=== PATIENT | female | born 1990 | race Caucasian/White ===

== ENCOUNTER → 2020-03-08 16:18 | Outpatient (BNVA) | payer OTHER, SELFPAY | PROVIDERS: Family Provider Family Medicine; PCP Family Medicine; Referring Provider Nurse Practitioner Family; Visit Provider Podiatrist Foot & Ankle Surgery | DX: L98.9 Disorder of the skin and subcutaneous tissue, unspecified (principal); M77.32 Calcaneal spur, left foot; M79.89 Other specified soft tissue disorders | CPT/HCPCS: 73630 ==

== ENCOUNTER → 2020-08-16 13:36 | Outpatient (BNVA) | payer OTHER, SELFPAY | PROVIDERS: Family Provider Family Medicine; PCP Family Medicine; Visit Provider Obstetrics & Gynecology | DX: Z32.01 Encounter for pregnancy test, result positive (principal) | CPT/HCPCS: 81025 ==

== ENCOUNTER → 2020-10-05 10:55 | Outpatient (BNVA) | payer OTHER, SELFPAY | PROVIDERS: Family Provider Family Medicine; PCP Family Medicine; Visit Provider Obstetrics & Gynecology | DX: Z34.81 Encounter for supervision of other normal pregnancy, first trimester (principal) | CPT/HCPCS: 80307; 84315; 85027; 86592; 86762; 86803; 86850; 86900; 87086; 87340; 87806 ==

== ENCOUNTER → 2020-10-26 15:03 | Outpatient (BNVA) | payer OTHER, SELFPAY | PROVIDERS: Family Provider Family Medicine; PCP Family Medicine; Visit Provider Obstetrics & Gynecology | DX: Z34.80 Encounter for supervision of other normal pregnancy, unspecified trimester | CPT/HCPCS: 84315; 87491; 87591 ==

== ENCOUNTER → 2020-11-16 11:20 | Outpatient (BNVA) | payer OTHER, SELFPAY | PROVIDERS: Family Provider Family Medicine; PCP Family Medicine; Visit Provider Nurse Practitioner Women's Health | DX: Z20.828 Contact with and (suspected) exposure to other viral communicable diseases (principal); Z34.90 Encounter for supervision of normal pregnancy, unspecified, unspecified trimester | CPT/HCPCS: 84315; 87635 ==

== ENCOUNTER → 2021-02-07 13:05 | Outpatient (BNVA) | payer OTHER, SELFPAY | PROVIDERS: Family Provider Family Medicine; PCP Family Medicine; Visit Provider Obstetrics & Gynecology | DX: O36.60X0 Maternal care for excessive fetal growth, unspecified trimester, not applicable or unspecified (principal) | CPT/HCPCS: 82950; 84315; 85025 ==

== ENCOUNTER → 2021-04-05 07:59 | Outpatient (BNVA) | payer OTHER, SELFPAY | PROVIDERS: Family Provider Family Medicine; PCP Family Medicine; Visit Provider Obstetrics & Gynecology | DX: O36.63X0 Maternal care for excessive fetal growth, third trimester, not applicable or unspecified (principal) | CPT/HCPCS: 84315; 87081 ==

== ENCOUNTER → 2021-04-26 07:54 | Outpatient (BNVA) | payer OTHER, SELFPAY | PROVIDERS: Family Provider Family Medicine; PCP Family Medicine; Visit Provider Obstetrics & Gynecology | DX: O36.63X0 Maternal care for excessive fetal growth, third trimester, not applicable or unspecified (principal); Z3A.00 Weeks of gestation of pregnancy not specified | CPT/HCPCS: 84315; 87635 ==

== ENCOUNTER 2021-04-29 06:43 | Inpatient (IN) | payer OTHER, SELFPAY ==
[2021-04-29] VITALS (50 sets, daily range): BP systolic 100–147; BP diastolic 50–85; PULSE 61–99; RESP 17; TEMP 36.6–37.4; O2SAT 98–100; BMI 32.0
[2021-04-29] MEDS: lactated ringers 1,000 ML 999 ML IV ×2 (07:09→09:30)
[2021-04-29 07:26] LABS: Basophils % 0.3 %; Eosinophils % 0.4 %; Hematocrit 37.6 % (37.0-47.0); Hemoglobin 12.6 g/dL (11.5-15.3); Lymphocytes # 1.4 10^3/uL (0.8-4.8); Lymphocytes % 12.7 %; Mean Corpuscular HGB Conc 33.5 g/dL (30.0-36.0); Mean Corpuscular Hemoglobin 31.1 pg (28.0-34.0); Mean Corpuscular Volume 92.8 fL (81-99); Mean Platelet Volume 12.2 fL (7.4-10.4); Monocytes # 0.5 10^3/uL (0.2-0.9); Monocytes % 4.8 %; Neutrophils # 8.87 10^3/uL (1.8-7.7); Neutrophils % 81.3 %; Nucleated Red Blood Cells % 0 %; Platelet Count 150 10^3/cmm (130-400); Red Blood Count 4.05 10^6/uL (4.1-5.3); Red Cell Distribution Width 13.2 % (12.1-15.1); White Blood Count 10.9 10^3/uL (4.0-10.0)
--- NOTE | 2021-04-29 07:45 | ANES.PREANE2 ---
Pre-Anesthetic Assessment Pre-Anesthetic Assessment: Height/Weight: Height 1.57 m Weight 79.379 kg Pulse Resp BP Pulse Ox 82 17 113/63 100 04/29/21 08:14 04/29/21 07:01 04/29/21 08:14 04/29/21 08:10 Preop Diagnosis: IUP Proposed Procedure: labor epidural Was Beta Sylvia taken within 24 hours: N/A Was Clonidine taken within 24 hours: N/A Social: Social History: No alcohol and No tobacco Exam: Pre-Anes Outpt Exam: alert, oriented x 3, clear to auscultation bilaterally and regular rate & rhythm Airway: Submandibular: WNL Cervical ROM: WNL MP: 1 History/ROS: No significant history except as noted Pulmonary: Pulmonary: None reported CV/HEM: CV/HEM: None reported : : None reported Hepatic: Hepatic: None reported GI: GI: None reported Metabolic: Metabolic: None reported Musc/skel: Musc/skel: None reported Neuropsych: Neuropsych: None reported Anesthetic Plan: ASA status: 1 Anesthesia: Anesthesia Evaluation Risk of > 500 ml blood loss (7ml/kg in children): No Meds/Allergies Current Medications: Current Medications Generic Name Dose Route Start Last Admin Trade Name Freq PRN Reason Stop Dose Admin Ropivacaine 200 mg in 100 mls @ 13 mls/hr 04/29/21 07:00 04/29/21 08:07 Naropin Premix EPIDURAL 13 mls/hr .Q7H42M PRN Administration ANESTHESIA Lactated Ringer's 1,000 mls @ 999 m ls/hr 04/29/21 07:00 04/29/21 08:10 Lactated Ringers IV Infused .Q1H1M PRN Infusion See label comment s Dextrose/Lactated Ringer's 1,000 mls @ 125 m ls/hr 04/29/21 07:00 04/29/21 08:10 Dextrose 5%-Lact ated Ringers IV 125 mls/hr .Q8H PRN Administration LABOR PAIN PFSH Anesthesia PFSH: Medical History No pertinent past medical history Denies diabetes, asthma, hypertension, seizures, DVT/PE,herpes --denies partner with herpes PCP: None. Uses [facility] Surgical History History of surgery on left wrist Benign cyst removal as a child S/P wisdom tooth extraction Family History Mother Heart disease Bladder cancer Hypertension Thyroid condition Grandmother Heart disease maternal Breast cancer paternal, age at diagnosis unknown Thyroid condition Maternal Denies family history of Colon cancer Ovarian cancer Diabetes Uterine cancer Stroke Female Reproductive History: : 2 Data Anesthesia CBC & Chem 7: 04/29/21 07:00 Other Labs: Laboratory Results - last 48 hr 04/29/21 07:00 WBC 10.9 H RBC 4.05 L Hgb 12.6 Hct 37.6 MCV 92.8 MCH 31.1 MCHC 33.5 RDW 13.2 Plt Count 150 MPV 12.2 H Neut % (Auto) 81.3 Lymph % (Auto) 12.7 Colbert % (Auto) 4.8 Eos % (Auto) 0.4 Baso % (Auto) 0.3 Neut # (Auto) 8.87 H Lymph # (Auto) 1.4 Colbert # (Auto) 0.5 Eos # (Auto) 0.0 Baso # (Auto) 0.0 Nucleated RBC % (auto) 0 Nucleated RBCs # 0.0 Cardiac Studies: No Data to Display
[2021-04-29] MEDS: dextrose 5%-lactated ringers 1,000 ML 125 ML IV (08:10)
--- NOTE | 2021-04-29 08:20 | ANES.PROC ---
Anesthesia Procedures Procedure/Date: 04/29/21 Epidural: Time Out Performed: Yes Consents Signed: Procedure Consent Consent: requested by attending/covering physician Lumbar Level: L3-L4 Epidural position: sitting Epidural procedure: sterile prep of area, 1% lidocaine to numb the area, negative for paresthesia passed, neg for paresthesia, test dose given, 1.5% xylocaine 1:200k epi, placed PCEA, no systemic response, sterile dressing applied, L.U.D. no apparent complications and 0.2% Ropiavacaine @ mls/hr (13)
[2021-04-29] MEDS: lidocaine 2% INJ 20 mL INJECTION (10:57)
[2021-04-29] MEDS: oxytocin 30 UNIT/500 ML BAG 600 UNIT IV (11:08)
--- NOTE | 2021-04-29 11:41 | P.PCNOB_ITS ---
Delivery Note: Date of delivery: April 29, 2021 - PRE-DELIVERY DIAGNOSIS: 31-year-old 2 para 1-0-0-1 at 39 weeks and 5 days gestation GBS negative Macrosomia Covid negative POST-DELIVERY DIAGNOSIS: Vaginal delivery on 04/29/2021 PROCEDURE: Vaginal delivery on 04/29/2021 ANESTHESIA: Epidural anesthesia with 2% lidocaine for local anesthesia DELIVERING PHYSICIAN: Emmy Wasserman FACOG PRE-DELIVERY COURSE: Ms. Nunn is a 31-year-old 2 para 1-0-0-1 at 39 weeks and 5 days who presented to labor and delivery at 6:30 AM for her scheduled induction. She had however started colleen at 2 AM and reported that since 5 AM her contractions have been consistent and painful and she has been breathing through them. Upon examination she was noted to be 5 cm 90% and -1 station with a bulging bag with a category 1 tracing except for early decelerations and contractions every 2 to 3 minutes. She was in active labor and was admitted to labor and delivery. Epidural was placed shortly afterwards. At 9 AM she was 7 cm 90% and -2 station and was comfortable with her epidural. Artificial rupture of membranes was performed at 9:06 AM with clear fluid and she made rapid cervical change after this and was fully dilated at 10:25 AM and +1 station. During this time she required position changes and oxygen for occasional late decelerations which resolved with these interventions. After she was fully dilated given that she had occasional late decelerations decision was made to start pushing and she was pushing effectively. DELIVERY NOTE: She was set up in lithotomy position and was pushing effectively. She was noted to be +3 station and continued pushing well. Right mediolateral episiotomy was cut after infiltrating the area with 2% lidocaine. The head delivered in OK position, no nuchal cord present. The shoulders and rest of the body followed with her next push. The baby's mouth and nose were suctioned and the baby was placed on the mother's belly. Once cord pulsations stopped the cord was clamped and cut. The placenta delivered spontaneously intact with membranes and was discarded. The fundus was noted to be firm and well contracted. The vagina and cervix were inspected and no cervical or sulcal lacerations were noted. The perineum was intact except for second-degree right mediolateral episiotomy. Baby boy born at 11 AM on 04/29/2021 with 8/9, weighing 8 pounds 6 ounces, 3785 g, 21 inches long. Placenta was delivered spontaneously intact with membranes at 11:06 AM. Cotyledons were intact , centrally inserted umbilical cord with 3 vessels noted. Estimated blood loss 300 mL. Complications-none, both baby and mother were left to recover in a stable condition. This documentation was created by [employer] chemical engineering technician software (known for inherent chemical engineering technician error). Every effort was made to assure accuracy of chemical engineering technician. Any obvious errors or omissions should be clarified with the author of the document. Coding Level of Care Code Acute Academic Computing Director for Chg Fwd History History History 2 Term 2 Miscarriages/Ectopic 0 0 Living Children 2 Other History: VAVD X 1 X 1 1--> 05/02/2017, male,(Zachariah) , 7 lbs 3 ozs, 39 wks, epidural, vacuum- assisted vaginal delivery for nonreassuring heart tracing and failure to descend, delivered by Dr Giraldo, at [facility], [place], [place]. Delivery was complicated by hemmorhage. 2---> 04/29/2021, male(), 8 pounds 6 ounces, 3785 g, 39 weeks and 5 days, active labor, epidural, vaginal delivery over a right mediol[place] [facility] [place]
[2021-04-29] MEDS: ibuprofen 800 mg tablet PO ×2 (15:19→20:59)
[2021-04-29] MEDS: lanolin oint 7 gm 1 APPLIC TOPICAL (15:19)
[2021-04-29] MEDS: benzocaine-menthol 78 gm Canister 1 SPRAY TOPICAL (15:19)
[2021-04-29] MEDS: docusate sodium 100 mg Capsule PO (17:57)
[2021-04-29 23:43] LABS: Hematocrit 29.3 % (37.0-47.0); Hemoglobin 9.8 g/dL (11.5-15.3); Mean Corpuscular HGB Conc 33.4 g/dL (30.0-36.0); Mean Corpuscular Hemoglobin 31.4 pg (28.0-34.0); Mean Corpuscular Volume 93.9 fL (81-99); Mean Platelet Volume 12.6 fL (7.4-10.4); Platelet Count 134 10^3/cmm (130-400); Red Blood Count 3.12 10^6/uL (4.1-5.3); Red Cell Distribution Width 13.6 % (12.1-15.1); White Blood Count 12.4 10^3/uL (4.0-10.0)
[2021-04-30] VITALS (8 sets, daily range): BP systolic 107–114; BP diastolic 57–72; PULSE 63–94; RESP 16–18; TEMP 36.3–36.9; O2SAT 99
[2021-04-30] MEDS: docusate sodium 100 mg Capsule PO (08:04)
[2021-04-30] MEDS: ibuprofen 800 mg tablet PO ×2 (08:04→17:28)
--- NOTE | 2021-04-30 15:26 | PM.OBGYDC ---
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 Nunn is a 31-year-old 2 para 1-0-0-1 at 39 weeks and 5 days who presented to labor and delivery at 6:30 AM for her scheduled induction. She had however started colleen at 2 AM and reported that since 5 AM her contractions have been consistent and painful and she has been breathing through them. Upon examination she was noted to be 5 cm 90% and -1 station with a bulging bag with a category 1 tracing except for early decelerations and contractions every 2 to 3 minutes. She was in active labor and was admitted to labor and delivery. Epidural was placed shortly afterwards. At 9 AM she was 7 cm 90% and -2 station and was comfortable with her epidural. Artificial rupture of membranes was performed at 9:06 AM with clear fluid and she made rapid cervical change after this and was fully dilated at 10:25 AM and +1 station. During this time she required position changes and oxygen for occasional late decelerations which resolved with these interventions. After she was fully dilated given that she had occasional late decelerations decision was made to start pushing and she was pushing effectively. DELIVERY NOTE: She was set up in lithotomy position and was pushing effectively. She was noted to be +3 station and continued pushing well. Right mediolateral episiotomy was cut after infiltrating the area with 2% lidocaine. The head delivered in OK position, no nuchal cord present. The shoulders and rest of the body followed with her next push. The baby's mouth and nose were suctioned and the baby was placed on the mother's belly. Once cord pulsations stopped the cord was clamped and cut. The placenta delivered spontaneously intact with membranes and was discarded. The fundus was noted to be firm and well contracted. The vagina and cervix were inspected and no cervical or sulcal lacerations were noted. The perineum was intact except for second-degree right mediolateral episiotomy. Baby boyEnrique born at 11 AM on 04/29/2021 with 8/9, weighing 8 pounds 6 ounces, 3785 g, 21 inches long. Placenta was delivered spontaneously intact with membranes at 11:06 AM. Cotyledons were intact , centrally inserted umbilical cord with 3 vessels noted. Estimated blood loss 300 mL. Complications-none, both baby and mother were left to recover in a stable condition. HOSPITAL COURSE: She underwent an uncomplicated vaginal delivery on 04/29/2021. She did well on day 0 and was ambulating well, tolerating regular diet, voiding freely, passing flatus. She was breast-feeding without difficulty and bonding well with her son. Circumcision was performed on day of life 1 per her request without any difficulty. Pain was well-controlled with by mouth pain medication. She denied nausea, vomiting, fever, chills, shortness of breath, leg pain. She had moderate vaginal bleeding. On day # 1 she continued to do well with stable vital signs and stable hemoglobin at 9.8. She was discharged home on day 1 in a stable condition, as she desired early discharge. Warning signs for endometritis, mastitis, DVT/PE were reviewed with her. Post delivery activity restrictions were also reviewed with her at all her questions were answered to her satisfaction. Plans on using control pills for contraception EXAM AT DISCHARGE: Gen.: No acute distress Heart: S1-S2 heard, regular rate and rhythm Lungs: Clear to auscultation bilaterally Abdomen: Soft, fundus firm below umbilicus Legs: No calf tenderness, +1 bilateral pitting pedal edema. CONDITION AT DISCHARGE: Stable This documentation was created by [employer] consulting database administrator software (known for inherent consulting database administrator error). Every effort was made to assure accuracy of consulting database administrator. Any obvious errors or omissions should be clarified with the author of the document. Information Peripartum Data: Delivery Method: Vaginal Physical Exam Urinary Catheter Management^: Dobson: Cath Placed During This Visit: yes, but has since been removed by the nurse Reason for Continuing Indwelling Catheter: Decision to DC Catheter Urinary Catheter Date of Insertion: 04/29/21 Urinary Catheter Time of Insertion: 08:30 Date Urinary Catheter Removed: 04/29/21 Time Urinary Catheter Discontinued: 10:40 Discharge Data Data Completed and Pending: Labs from last 24 hours 04/29/21 23:37 WBC 12.4 H RBC 3.12 L Hgb 9.8 L Hct 29.3 L MCV 93.9 MCH 31.4 MCHC 33.4 RDW 13.6 Plt Count 134 MPV 12.6 H Vitals: Last Vital Signs Temp 98.4 F 04/30/21 09:28 Pulse 76 04/30/21 09:28 Resp 16 04/30/21 09:39 BP 107/57 04/30/21 09:28 Pulse Ox 99 04/30/21 09:39 Discharge Plan Discharge Patient Disposition: Home Condition: Stable Prescriptions: New hydrocodone-acetaminophen 5-325 mg tablet 1 tab PO Q6H Qty: 10 RF: 0 docusate sodium 100 mg Capsule 100 mg PO BID PRN (Reason: constipation) Qty: 30 RF: 0 ibuprofen 800 mg tablet 800 mg PO Q8H Qty: 30 RF: 0 Continued prenat.vits,sara,[id number]-[id number] Tablet 1 tab PO DAILY RF: 0 Discharge Orders: Discharge Order (Routine); Ordered 04/30/21 Ordered By: Emmy Salazar Referrals: Emmy Salazar MD [Physician] - (6-week ) Discharge Diet: Usual diet Discharge Activity: Limit activity as instructed Patient Instructions: and the Working Mom (GEN), Expression, Collection and Storage of Breastmilk (GEN), and Nipple Soreness (GEN), and Plugged Ducts (GEN), Pre-eclampsia and Eclampsia (DC), OB Discharge Report, OB Food/Drug Interaction Guide, Opioid Safety, OB Proud Parent Packet, OB Vaginal Deliveries - [facility], Abnormal Bleeding, Depression Activity Restrictions/Additional Instructions: Pelvic rest for 6 weeks, no heavy lifting for 6 weeks, 6-week visit with Dr. 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
== END 2021-04-30 18:01 | disposition home or self-care (01) | DRG 807 ==
PROVIDERS: Admitting Provider Obstetrics & Gynecology; PCP Family Medicine; Visit Provider Obstetrics & Gynecology
DX: O76 Abnormality in fetal heart rate and rhythm complicating labor and delivery (principal); Z37.0 Single live birth; O36.63X0 Maternal care for excessive fetal growth, third trimester, not applicable or unspecified; Z3A.39 39 weeks gestation of pregnancy; Z86.16 Personal history of COVID-19
CPT/HCPCS: 36415; 51702; 59409; 85025; 85027; J2795; J3010

== ENCOUNTER → 2021-06-20 16:20 | Outpatient (BNVA) | payer OTHER, SELFPAY | PROVIDERS: PCP Family Medicine; Visit Provider Obstetrics & Gynecology | DX: Z12.4 Encounter for screening for malignant neoplasm of cervix (principal); Z30.9 Encounter for contraceptive management, unspecified | CPT/HCPCS: 88175 ==